=== PATIENT | female | born 1980 | race American Indian/Alaskan Native ===

== ENCOUNTER 2017-06-11 10:29 | Emergency (ER) | payer OTHER ==
[2017-06-11 11:10] VITALS: BP 161/95
[2017-06-11] MEDS ORDERED: TORADOL IM ONE (13:00)
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
--- NOTE | 2017-06-11 14:24 | XRay Report ---
CERVICAL SPINE, 3 views: History: Spinal tenderness. Findings: The vertebral bodies, disk spaces, posterior elements and prevertebral soft tissues are intact. Early degenerative disc disease at C6-7 is noted. The dens is intact. No acute fracture or malalignment is identified. Impression: Early degenerative disc disease at C6-7.
== END 2017-06-11 14:33 | disposition home or self-care (01) ==
LOC: ED 10:29
DX: S13.4XXA Sprain of ligaments of cervical spine, initial encounter (principal); F12.10 Cannabis abuse, uncomplicated; Z88.6 Allergy status to analgesic agent; Z88.1 Allergy status to other antibiotic agents; Y93.89 Activity, other specified; V87.7XXA Person injured in collision between other specified motor vehicles (traffic), initial encounter; Y99.8 Other external cause status; Y92.410 Unspecified street and highway as the place of occurrence of the external cause
CPT/HCPCS: 72040; 96372; 99283; J1885